=== PATIENT | female | born 1955 ===

== ENCOUNTER 2020-07-15 08:00 | Emergency (ER) | payer MEDICARE, BC ==
--- NOTE | 2020-07-15 08:21 | EDM.PDOC ---
ED HPI GENERAL MEDICAL PROBLEM - General Chief Complaint: Lower Extremity Injury/Pain Stated Complaint: right foot/ankle injury Time Seen by Provider: 07/15/20 08:15 Source of Information: Reports: Patient. Denies: Old Records (No [facility] records available) History Limitations: Reports: No Limitations - History of Present Illness INITIAL COMMENTS - FREE TEXT/NARRATIVE: The patient was brought to the emergency room via private automobile by a friend for evaluation of initial 10/10 right foot pain with improvement to 7/10 pain this morning after 800 mg of ibuprofen was taken at about 4 AM. The patient was at home when she accidentally stepped in a hole in her yard at 1400 hrs. yesterday afternoon with no history of fall, head injury, neck/back pain, paresthesias, neurological deficits or other complaints or injuries. She has not injured this foot in the past, although she is having more problems with weightbearing today. No history of any joint instability, knee injury, etc. No recent history of abdominal pain, heartburn, nausea, diarrhea, melena, gross hematochezia, or any food intolerance, including fatty foods, etc.. The patient also denies any recent fever, cough, wheezing, dyspnea, etc.. Onset: Sudden Onset Date: 07/14/20 Onset Time: 14:00 Duration: Constant, Getting Worse Location: Reports: Lower Extremity, Right. 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 Denies: Allergic Rhinitis, Cataract, Glaucoma, Hard of Hearing, Macular Degeneration, Otitis Media, Retinal Detachment Other HEENT History: Patient wears reading glasses. Musculoskeletal History: Reports: Arthritis, Osteoarthritis. Denies: Fracture Psychiatric History: Reports: Anxiety, Depression, Other (See Below) Other Psychiatric History: Chronic insomnia. 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 ED EXAM, GENERAL - Physical Exam Exam: See Below Exam Limited By: No Limitations General Appearance: Alert, WD/WN, No Apparent Distress Head: Atraumatic, Normocephalic. No: Facial Swelling, Facial Tenderness, Sinus Tenderness Neck: Normal Inspection, Supple, Non-Tender, Full Range of Motion. No: Lymphadenopathy (L), Lymphadenopathy (R), Thyromegaly Respiratory/Chest: No Respiratory Distress, Lungs Clear, Normal Breath Sounds, No Accessory Muscle Use, Chest Non-Tender. No: Pleural Rub, Retractions Cardiovascular: Normal Peripheral Pulses, Regular Rate, Rhythm, No Edema, No Gallop, No JVD, No Murmur, No Rub. No: Gallop/S3, Gallop/S4, Friction Rub Peripheral Pulses: 2+: Radial (L), Radial (R), Dorsalis Pedis (R) GI/Abdominal: Normal Bowel Sounds, Soft, Non-Tender, No Organomegaly, No Distention, No Abnormal Bruit, No Mass, Pelvis Stable. No: Guarding (Female) Exam: Deferred Rectal (Female) Exam: Deferred Back Exam: Normal Inspection, Full Range of Motion. No: CVA Tenderness (L), CVA Tenderness (R), Muscle Spasm Extremities: No Pedal Edema, Joint Swelling (Mild mostly lateral dorsal foot swelling with mild localized tenderness but no crepitation, deformity, etc. Right ankle is completely normal with no effusion, instability, etc.), Leg Pain (Right foot as above with no evidence of knee, hip, etc. injury), Limited Range of Motion (Right foot secondary to pain). No: Yumiko's Sign Neurological: Alert, Oriented, CN II-XII Intact, Normal Cognition, No Motor/Sensory Deficits, Abnormal Gait (Favoring of the right foot secondary to injury) Psychiatric: Anxious (Mild), Depressed Mood (Mild with adequate eye contact) Skin Exam: Warm, Dry, Intact, Normal Color, No Rash. No: Diaphoretic, Ecchymosis, Wound/Incision Lymphatic: No Adenopathy ED TRAUMA EXTREMITY PROCEDURES - Splinting Right Lower Extremity Splint Site: Right foot Pre-Procedure NV Status: Normal Post-Procedure NV Status: Normal (Roxy Parks DNP from [facility] 2 people 8) Splint Material: Other (4 inch James wrap with postop shoe) Splint Design: Other (As above) Applied & Form Fitted By: Nurse Provider Post-Splint Application NV Check: NV Status Normal, Good Position Complications: No Progress/Comments: Patient also provided crutches. Course - Vital Signs Last Recorded V/S: Last Vital Signs Temp 36.7 C 07/15/20 08:23 Pulse 65 07/15/20 08:23 Resp 18 07/15/20 08:23 BP 117/67 07/15/20 08:23 Pulse Ox 98 07/15/20 08:23 Vital Signs - 24 hr 07/15/20 08:23 Temperature [ 36.7 C Temporal] Pulse, 65 Peripheral [ Pulse Oximetry] Respiratory 18 Rate Blood Pressure 117/67 [Left Upper Arm ] O2 Sat by Pulse 98 Oximetry - Orders/Labs/Meds Orders: Active Orders 24 hr Category Date Time Status Foot 2V Rt [CR] Stat Exams 07/15/20 08:36 Taken Durable Medical Equipment for Discharge [DME for Ot 07/15/20 09:37 Ordered Discharge] [COMM] Routine Durable Medical Equipment for Discharge [DME for Ot 07/15/20 09:38 Ordered Discharge] [COMM] Routine Durable Medical Equipment for Discharge [DME for Ot 07/15/20 09:38 Ordered Discharge] [COMM] Routine Obtain Past Medical Record [OM.PC] Routine Ot 07/15/20 08:21 Active Labs: None Meds: None - Radiology Interpretation Free Text/Narrative:: X-rays of the right foot, complete, shows evidence of a questionable medial navicular avulsion fracture with mild osteoarthritic changes and no subluxation, etc. Departure - Departure Time of Disposition: 10:05 Disposition: Home, Self-Care 01 Condition: Good Clinical Impression: Right foot pain, Mixed anxiety depressive disorder Osteoarthritis Qualifiers: Osteoarthritis location: multiple joints Osteoarthritis type: primary Qualified Code(s): M89.49 - Other hypertrophic osteoarthropathy, multiple sites - Discharge Information *PRESCRIPTION DRUG MONITORING PROGRAM REVIEWED*: Not Applicable *COPY OF PRESCRIPTION DRUG MONITORING REPORT IN PATIENT SUHAIL: Not Applicable Instructions: Crutch Use, Adult, [id number], Avulsion Fracture of the Foot Forms: ED Department Discharge Additional Instructions: 1. Followup with your regular provider in 7-10 days as directed for reevaluation and recommended repeat x-ray of your right foot. Bring these discharge instructions with you to that visit. 2. Tylenol 650 mg by mouth every 4 hours and/or OTC ibuprofen 2-3 tabs by mouth every 6 hours with food as directed./needed. You may stagger these medications for 48-72 hours only, which essentially means that you are receiving a pain medication about every 2 hours. 3. Leg elevation as discussed with crutches, postop shoe, and James wrap to be used as directed until otherwise advised by your regular provider 4. Limited weightbearing of the right foot with limited activity as discussed 5. BenGay or equivalent, heating pad, and/or ice packs as directed. 6. Immediately after this visit verify that your cellular telephone's voicemail has been activated and is empty. Also verify that your home telephone's answering machine is operating properly and has space to receive messages. Note that it is sometimes necessary for us to be able to contact you at a later date to discuss your medical care. 7. Please remember that we are ALWAYS here for you and want to answer any questions you may have. Feel free to call the hospital any time and we call you back ZA. Sepsis Event Note (ED) - Focused Exam Vital Signs: Vital Signs Temp Pulse Resp BP Pulse Ox 07/15/20 08:23 36.7 C 65 18 117/67 98 - Problem List & Annotations (1) Right foot pain SNOMED Code(s): 72042745 Code(s): M79.671 - PAIN IN RIGHT FOOT Status: Acute Priority: High Current Visit: Yes Onset Date: 07/14/20 Annotation/Comment:: Likely mild right foot sprain with possibility of mild avulsion fracture of the navicular bone as above versus old injury versus accessory bone. Patient was placed in an James wrap, postoperative shoe, and provided crutches. Close follow-up by regular provider as per discharge instructions. Activity restrictions, etc. were discussed. (2) Osteoarthritis SNOMED Code(s): 875986584 Code(s): M19.90 - UNSPECIFIED OSTEOARTHRITIS, UNSPECIFIED SITE Status: Chronic Priority: Medium Current Visit: Yes Annotation/Comment:: Otherwise stable by history with no evidence of other injury. Qualifiers: Osteoarthritis location: multiple joints Osteoarthritis type: primary Qualified Code(s): M89.49 - Other hypertrophic osteoarthropathy, multiple sites (3) Mixed anxiety depressive disorder SNOMED Code(s): 713819169 Code(s): F41.8 - OTHER SPECIFIED ANXIETY DISORDERS Status: Chronic Priority: Medium Current Visit: Yes Annotation/Comment:: Stable by history. Continue to observe closely by regular provider. Apparent additional BuSpar, however dose unknown. - Problem List Review Problem List Initiated/Reviewed/Updated: Yes - My Orders Last 24 Hours: My Active Orders 07/15/20 08:21 Obtain Past Medical Record [OM.PC] Routine 07/15/20 08:36 Foot 2V Rt [CR] Stat 07/15/20 09:37 Durable Medical Equipment for Discharge [DME for Discharge] [COMM] Routine 07/15/20 09:38 Durable Medical Equipment for Discharge [DME for Discharge] [COMM] Routine Durable Medical Equipment for Discharge [DME for Discharge] [COMM] Routine - Assessment/Plan Last 24 Hours: My Active Orders 07/15/20 08:21 Obtain Past Medical Record [OM.PC] Routine 07/15/20 08:36 Foot 2V Rt [CR] Stat 07/15/20 09:37 Durable Medical Equipment for Discharge [DME for Discharge] [COMM] Routine 07/15/20 09:38 Durable Medical Equipment for Discharge [DME for Discharge] [COMM] Routine Durable Medical Equipment for Discharge [DME for Discharge] [COMM] Routine Assessment:: As above Plan: As above. Extensive precautions were given to the patient, who is in agreement with the treatment plan. See Patient Instructions for further treatment and plan.
== END 2020-07-15 10:05 | disposition home or self-care (01) ==
LOC: LL.ED 08:00
DX: M79.671 Pain in right foot (principal); M89.49 Other hypertrophic osteoarthropathy, multiple sites; F41.8 Other specified anxiety disorders; Z88.2 Allergy status to sulfonamides; X58.XXXA Exposure to other specified factors, initial encounter
CPT/HCPCS: 73620-RT; 99283